=== PATIENT | female | born 1955 | race Caucasian/White ===

== ENCOUNTER → 2020-11-28 08:36 | Outpatient (CLI) | payer OTHER, SELFPAY ==
--- NOTE | ~2020-11-28 | XR_ITS ---
XR wrist RT w scaphoid DATE: 11/28/2020 08:58 INDICATION: Right wrist pain TECHNIQUE: 5 views COMPARISON: None FINDINGS: There is diffuse osteopenia. There is prominent osteoarthritic change at the triscaphe joint. No fracture or dislocation of the right wrist. No periosteal reaction or bone destruction, erosive ch hang or chondrocalcinosis. IMPRESSION: Osteopenia Triscaphe osteoarthritis Reviewed, dictated and finalized at location B.
--- NOTE | ~2020-11-28 | XR_ITS ---
XR hand RT 2V DATE: 11/28/2020 08:58 INDICATION: Right hand pain TECHNIQUE: AP and lateral views COMPARISON: None FINDINGS: Diffuse osteopenia. Prominent osteophytic change at the triscaphe joint. There is mild osteophytic change at the interphalangeal joints. No fracture or dislocation, periosteal reaction or bone destruction is detected. IMPRESSION: Osteopenia Polyarticular osteoarthritis Reviewed, dictated and finalized at location B.
== END ==
PROVIDERS: PCP Family Medicine; Visit Provider Physician Assistant
DX: M19.031 Primary osteoarthritis, right wrist (principal); M19.041 Primary osteoarthritis, right hand; M85.841 Other specified disorders of bone density and structure, right hand
CPT/HCPCS: 73110; 73120

== ENCOUNTER → 2020-12-19 08:11 | Outpatient (CLI) | payer OTHER, SELFPAY ==
--- NOTE | ~2020-12-19 | XR_ITS ---
EXAMINATION: XR knee LT 2V DATE: 12/19/2020 08:27 INDICATION: Left knee pain. TECHNIQUE: 2 views of left knee standing were obtained. COMPARISON: None. FINDINGS: Bone alignment is normal. No fracture. There is moderate osteoarthritis of medial compartme nt with osteophytes and mild joint space narrowing. There is mild osteoarthritis of lateral and dubon lofemoral compartments characterized by tiny marginal osteophytes. There is a small knee joint effusi on. IMPRESSION: 1. Moderate left knee osteoarthritis. 2. Moderate-sized left knee joint effusion. Reviewed, dictated and finalized at location A.
== END ==
PROVIDERS: PCP Family Medicine; Visit Provider Nurse Practitioner Family
DX: M17.12 Unilateral primary osteoarthritis, left knee (principal); M25.462 Effusion, left knee
CPT/HCPCS: 73560

== ENCOUNTER 2021-04-07 09:25 | Outpatient (CLI) | payer OTHER, SELFPAY ==
--- NOTE | 2021-04-07 11:00 | NEURO_ITS ---
Impression: # Complains of numbness of hands. # Evolving Carpal Tunnel Syndrome. # Normal needle/EMG exam. # No underlying neuropathy. Nerve Conduction Studies Anti Sensory Summary Table Stim Site NR Peak (ms) P-T Amp (?V) Site1 Site2 Delta-P (ms) Dist (cm) Eduard (m/s) Left Median Anti Sensory (2-3nd Digit) Wrist 2.6 61.2 Wrist 2-3nd Digit 2.6 14.0 54 Wrist 2.6 55.4 Wrist 2-3nd Digit 2.6 14.0 54 Right Median Anti Sensory (2-3nd Digit) Wrist 2.8 50.5 Wrist 2-3nd Digit 2.8 14.0 50 Wrist 2.8 69.7 Wrist 2-3nd Digit 2.8 14.0 50 Left Radial Anti Sensory (Base 1st Digit) Wrist 1.9 15.7 Wrist Base 1st Digit 1.9 0.0 Right Radial Anti Sensory (Base 1st Digit) Wrist 2.2 21.7 Wrist Base 1st Digit 2.2 0.0 Left Ulnar Anti Sensory (5th Digit) Wrist 2.3 41.3 Wrist 5th Digit 2.3 14.0 61 Right Ulnar Anti Sensory (5th Digit) Wrist 2.4 45.0 Wrist 5th Digit 2.4 14.0 58 Motor Summary Table Stim Site NR Onset (ms) O-P Amp (mV) Site1 Site2 Delta-0 (ms) Dist (cm) Eduard (m/s) Left Median Motor (Abd Poll Brev) Wrist 3.1 3.7 Elbow Wrist 4.9 28.0 57 Elbow 8.0 2.8 Right Median Motor (Abd Poll Brev) Wrist 3.2 5.5 Elbow Wrist 4.5 25.0 56 Elbow 7.7 3.3 Left Ulnar Motor (Abd Dig Minimi) Wrist 2.1 5.6 A Elbow Wrist 4.6 27.0 59 A Elbow 6.7 4.3 Right Ulnar Motor (Abd Dig Minimi) Wrist 2.1 5.7 A Elbow Wrist 4.5 26.0 58 A Elbow 6.6 4.7 F Wave Studies NR F-Lat (ms) L-R F-Lat (ms) Left Median (Mrkrs) (Abd Poll Brev) 26.41 1.01 Right Median (Mrkrs) (Abd Poll Brev) 27.42 1.01 Left Ulnar (Mrkrs) (Abd Dig Min) 26.35 0.04 Right Ulnar (Mrkrs) (Abd Dig Min) 26.31 0.04 EMG Side Muscle Nerve Root Ins Act Fibs Amp Dur Recrt Comment Right 1stDorInt Ulnar C8-T1 Nml Nml Nml Nml Nml Right Ext Indicis Radial (Post Int) C7-8 Nml Nml Nml Nml Nml Right Ext Digitorum Radial (Post Int) C7-8 Nml Nml Nml Nml Nml Right BrachioRad Radial C5-6 Nml Nml Nml Nml Nml Right PronatorTeres Median C6-7 Nml Nml Nml Nml Nml Right Abd Poll Brev Median C8-T1 Nml Nml Nml Nml Nml Left 1stDorInt Ulnar C8-T1 Nml Nml Nml Nml Nml Left Ext Indicis Radial (Post Int) C7-8 Nml Nml Nml Nml Nml Left Ext Digitorum Radial (Post Int) C7-8 Nml Nml Nml Nml Nml Left BrachioRad Radial C5-6 Nml Nml Nml Nml Nml Left PronatorTeres Median C6-7 Nml Nml Nml Nml Nml Left Abd Poll Brev Median C8-T1 Nml Nml Nml Nml Nml MTDD
== END 2021-04-07 09:26 | disposition home or self-care (01) ==
PROVIDERS: PCP Family Medicine; Visit Provider Nurse Practitioner Family
DX: R20.2 Paresthesia of skin (principal); G56.00 Carpal tunnel syndrome, unspecified upper limb; R20.0 Anesthesia of skin
CPT/HCPCS: 95886; 95911

== ENCOUNTER 2021-05-25 09:35 | Outpatient (CLI) | payer OTHER, SELFPAY ==
--- NOTE | ~2021-05-25 | MM_ITS ---
EXAMINATION: MM screening kostas BI w joselito HISTORY: Screening TECHNIQUE: Craniocaudal and mediolateral oblique 3-D tomosynthesis images were obtained and synthetic 2-D images were generated. CAD analysis was submitted and interpreted. COMPARISON: Comparison to multiple prior studies sequentially, with oldest reviewed study dated 03/31. BREAST PARENCHYMAL COMPOSITION: Breast composed of scattered areas of fibroglandular density FINDINGS: There is no evidence of suspicious mass, calcification, or architectural distortion to sugg est malignancy in either breast. There has been no suspicious interval change. IMPRESSION: 1. No mammographic evidence of malignancy. 2. Recommend routine screening mammography in one year. BI-RADS Category 1: Negative Reviewed, dictated and finalized at location A. 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
== END 2021-05-25 09:36 | disposition home or self-care (01) ==
PROVIDERS: PCP Family Medicine; Visit Provider Physician Assistant
DX: Z12.31 Encounter for screening mammogram for malignant neoplasm of breast (principal)
CPT/HCPCS: 77063; 77067

== ENCOUNTER → 2021-12-09 14:12 | Outpatient (CLI) | payer OTHER, SELFPAY ==
--- NOTE | ~2021-12-09 | XR_ITS ---
XR knee LT 3V 12/09/2021 14:23 Indication: Left knee pain Procedure: 4 views left knee Comparison: 12/20/2019 Findings: Mild-to severe tricompartment osteoarthritis of the left knee. No fracture, subluxation or dislocation. No significant joint effusion. No foreign body. Impression: 1: Mild-severe tricompartment osteoarthritis of the left knee, most advanced in the medial compartmen t. Reviewed, dictated and finalized at location B. Impression: 1: Mild-severe tricompartment osteoarthritis of the left knee, most advanced in the medial compartment.
== END ==
PROVIDERS: PCP Physician Assistant; Visit Provider Physician Assistant
DX: M25.562 Pain in left knee (principal); M17.12 Unilateral primary osteoarthritis, left knee
CPT/HCPCS: 73562

== ENCOUNTER → 2022-03-11 15:49 | Outpatient (CLI) | payer OTHER, SELFPAY ==
--- NOTE | ~2022-03-11 | MR_ITS ---
EXAMINATION: MR knee LT wo con DATE: 03/11/2022 16:27 INDICATION: Left knee pain. TECHNIQUE: Magnetic resonance imaging (MRI) of the left knee was performed without intravenous contra st. Sequences included axial PD-weighted FS FSE, coronal PD-weighted FSE and PD-weighted FS FSE, sagi ttal PD-weighted FSE, and sagittal T2-weighted FS FSE. COMPARISON: left knee radiographs 12/09/21 FINDINGS: Medial compartment: Medial meniscus is normal. There is full-thickness cartilage loss of tibial condyle involving the ant erior articular surface with mild subchondral edema-like signal intensity. There is full-thickness ca rtilage loss of femoral condyle involving the central articular surface with mild subchondral edema-l hannah marrow signal intensity. Osteophytes are noted. Lateral compartment: The lateral meniscus is normal. There is shallow partial-thickness cartilage loss of tibial condyle i nvolving the medial articular surface. The femoral cartilage is normal. Osteophytes are noted. Patellofemoral compartment: There is deep partial thickness cartilage fissuring of patellar medial facet. There is shallow partia l-thickness cartilage loss of trochlea. Osteophytes are noted. Ligaments and tendons: The anterior and posterior cruciate ligaments are normal. There are changes of prior sprain of medial collateral ligament characterized by increased signal intensity proximally. Lateral collateral ligam ent complex is normal. There is mild patellar tendinopathy. Fluid: There is a small knee joint effusion. There is trace fluid in a Faustin's cyst. There is mild superfici al infrapatellar bursitis. IMPRESSION: 1. Severe chondrosis of medial compartment, moderate chondrosis of patellofemoral compartment, and mi ld chondrosis of lateral compartment. 2. Small knee joint effusion. Reviewed, dictated and finalized at location A. G[facility] FACILITY IMPRESSION: 1. Severe chondrosis of medial compartment, moderate chondrosis of patellofemor al compartment, and mild chondrosis of lateral compartment. 2. Small knee joint effusion.
== END ==
PROVIDERS: PCP Physician Assistant; Visit Provider Family Medicine
DX: S89.92XA Unspecified injury of left lower leg, initial encounter (principal); X58.XXXA Exposure to other specified factors, initial encounter; M25.462 Effusion, left knee
CPT/HCPCS: 73721

== ENCOUNTER 2022-06-01 11:00 | Outpatient (RCR) | payer OTHER, SELFPAY ==
[2022-06-01 11:08] VITALS: BMI 48.2
[2022-06-01 13:02] VITALS: BMI 48.2
== END 2022-08-02 10:33 | disposition home or self-care (01) ==
LOC: ANHDMC 11:00
PROVIDERS: PCP Family Medicine; Visit Provider Nurse Practitioner Family
DX: E11.65 Type 2 diabetes mellitus with hyperglycemia (principal); Z71.89 Other specified counseling; Z71.3 Dietary counseling and surveillance
CPT/HCPCS: 97802; 99199; G0108; G0109

== ENCOUNTER 2022-10-30 11:05 | Outpatient (CLI) | payer OTHER, SELFPAY ==
--- NOTE | ~2022-10-30 | MM_ITS ---
EXAMINATION: MM screening kostas BI w joselito HISTORY: Screening mammogram TECHNIQUE: Craniocaudal and mediolateral oblique 3-D tomosynthesis images were obtained and synthetic 2-D images were generated. CAD analysis was submitted and interpreted. COMPARISON: No prior mammogram is available for comparison at this institution. BREAST PARENCHYMAL COMPOSITION: The breasts are almost entirely fatty. FINDINGS: There is no evidence of suspicious mass, calcification, or architectural distortion to sugg est malignancy in either breast. There has been no suspicious interval change. IMPRESSION: 1. No mammographic evidence of malignancy. 2. Recommend routine screening mammography in one year. BI-RADS Category 1: Negative Reviewed, dictated and finalized at location A.
== END 2022-10-30 11:06 | disposition home or self-care (01) ==
LOC: ANHIMG 11:07
PROVIDERS: PCP Family Medicine; Visit Provider Physician Assistant
DX: Z12.31 Encounter for screening mammogram for malignant neoplasm of breast (principal)
CPT/HCPCS: 77063; 77067

== ENCOUNTER 2023-02-11 08:17 | Outpatient (CLI) | payer OTHER, SELFPAY ==
--- NOTE | 2023-02-11 08:51 | ECG_ITS ---
Measurements Intervals Salyer Rate: 71 P: 39 SD: 156 QRS: 51 QRSD: 98 T: 26 QT: 388 QTc: 423 Interpretive Statements SINUS RHYTHM NO PREVIOUS ECG AVAILABLE FOR COMPARISON Electronically Signed On 02-11-2023 13:34:38 CDT by Lady Restrepo MD
[2023-02-11 09:31] LABS: Basophils Percent Auto 0.3 % (0.2-1.2); Eosinophils Absolute Auto 0.2 K/mm3 (0-0.3); Eosinophils Percent Auto 2.9 % (0-4.4); Hematocrit 41.2 % (37.0-47.0); Hemoglobin 12.6 g/dL (12.0-15.0); Immature Granulocyte Absolute 0.02 K/mm3 (0.00-0.031); Immature Granulocyte Percent A 0.3 % (0-0.5); Lymphocytes Absolute Auto 2.46 K/mm3 (0.9-3.2); Lymphocytes Percent Auto 33.8 % (18.3-44.2); Mean Corpuscular HGB Conc 30.6 g/dl (32-36); Mean Corpuscular Hemoglobin 26.9 pg (26-34); Mean Platelet Volume 10.8 fl (7.4-10.4); Monocytes Absolute Auto 0.5 K/mm3 (0.1-0.6); Monocytes Percent Auto 7.1 % (2.6-8.5); Neutrophils Absolute Auto 4.1 K/mm3 (1.3-6.7); Neutrophils Percent Auto 55.6 % (45.5-73.1); Platelet Count Result 334 k/mm3 (150-375); Red Blood Count 4.68 M/mm3 (4.2-5.4); Red Cell Distribution Width 14.1 % (11.5-14.5); White Blood Count 7.3 K/mm3 (4.5-10.0)
[2023-02-11 09:38] LABS: Anion Gap 8 mmol/L (8-16); Blood Urea Nitrogen 6 mg/dL (7-17); Carbon Dioxide 28 mmol/L (22-30); Chloride 101 mmol/L (98-107); Estimated Glomerular Filt Rate > 60; Glucose 131 mg/dL (65-110); Potassium 3.8 mmol/L (3.4-5.0); Sodium 137 mmol/L (137-145)
[2023-02-11 09:43] LABS: Appearance Urine Cloudy (Clear); Bacteria Urine 2+ /hpf; Bilirubin Urine Negative (Negative); Blood Urine Negative (Negative); Color Urine Yellow (Yellow); Glucose Urine UA Negative (Negative); Ketones Urine Negative (Negative); Leukocyte Esterase Ur 1+ LEU/UL (Negative); Nitrate Urine Negative (Negative); Non Pathogenic Casts 0-2; Protein Urine Negative (Negative); RBC Urine 0-2 /hpf (0-2); Specific Grav Ur 1.017 (1.001-1.035); Squamous Epithelial Cell Urine Many /hpf (Few)
[2023-02-11 09:59] LABS: Add Urine Microscopic? YES
[2023-02-11 14:02] LABS: Hemoglobin A1C 5.9 % (<5.7)
== END 2023-02-11 08:18 | disposition home or self-care (01) ==
LOC: ANHLAB 08:20
PROVIDERS: PCP Family Medicine; Visit Provider Orthopaedic Surgery
DX: E78.5 Hyperlipidemia, unspecified (principal); E11.69 Type 2 diabetes mellitus with other specified complication; M17.12 Unilateral primary osteoarthritis, left knee; I10 Essential (primary) hypertension; R53.83 Other fatigue
CPT/HCPCS: 36415; 80048; 81001; 83036; 85025; 87086; 87088; 93005

== ENCOUNTER 2023-03-16 09:43 | Outpatient (CLI) | payer OTHER, SELFPAY ==
[2023-03-16 11:20] LABS: Albumin Level 4.1 g/dL (3.5-5.1)
[2023-03-16 11:21] LABS: Appearance Urine Cloudy (Clear); Bacteria Urine 1+ /hpf; Bilirubin Urine Negative (Negative); Blood Urine Negative (Negative); Color Urine Yellow (Yellow); Glucose Urine UA Negative (Negative); Ketones Urine Negative (Negative); Leukocyte Esterase Ur 1+ LEU/UL (Negative); Nitrate Urine Negative (Negative); Non Pathogenic Casts 0-2; Protein Urine Negative (Negative); Prothrombin Time 13.6 Seconds (11.1-14.7); RBC Urine 0-2 /hpf (0-2); Specific Grav Ur 1.015 (1.001-1.035); Squamous Epithelial Cell Urine Moderate /hpf (Few); pH Urine 7.5 (5.0-9.0)
[2023-03-16 11:22] LABS: Partial Thromboplastin Time 31.5 SECONDS (22.3-36.8)
[2023-03-16 11:24] LABS: Add Urine Microscopic? YES
[2023-03-16 11:26] LABS: Urine Cotinine NEGATIVE
== END 2023-03-16 09:44 | disposition home or self-care (01) ==
LOC: ANHSURGERY 09:47
PROVIDERS: PCP Family Medicine; Visit Provider Orthopaedic Surgery
DX: M17.12 Unilateral primary osteoarthritis, left knee (principal); Z01.818 Encounter for other preprocedural examination
CPT/HCPCS: 80307; 81001; 82040; 85610; 85730; 87081; 87086

== ENCOUNTER 2023-03-30 01:03 | Day surgery (SDC) | payer OTHER, SELFPAY ==
--- NOTE | 2023-03-16 09:46 | PC.NURSE ---
PRE-OP INSTRUCTIONS, PLEASE READ CAREFULLY Report to the Outpatient Waiting Room, entrance under the green pavilion located off [facility], at time _0600_ on date _03/30/23_. Planned Procedure Time: _0730_. PACK A SMALL OVERNIGHT BAG AND LEAVE IN THE CAR ALONG WITH YOUR WALKER Time changes happen often and if your time is changed the preop area will call you the afternoon before. - You and your visitor will be asked to self-screen and do not enter if you have any COVID symptoms. - A mask is optional within the hospital at this time. -VISITING HOURS 8AM-8PM Patients may have clear liquids (water, carbonated beverages, clear teas, apple juice) until 3 hours prior to surgery (0430 AM) with a maximum of 20 ounces. - No food from midnight until time of surgery Take the following medications with a SIP of water the morning of surgery: _TYLENOL IF NEEDED_ DO NOT STOP ANY OF YOUR OTHER PRESCRIPTION MEDICATIONS PRIOR TO SURGERY ?EXCEPT THE FOLLOWING Medications to discontinue per ANESTHESIA - _VITAMINS/SUPPLEMENTS 3 DAYS PRIOR TO SURGERY, Date to take last dose 03/26/23_ Please no make-up, nail greek, hairspray, perfume, deodorant, or body powder the day of surgery. No jewelry (including any body piercings) or valuables the day of surgery, leave them at home. Please take a shower or bath the night before, or the morning of, surgery with an antibacterial soap. Wear comfortable, loose fitting clothing. - Jewelry must be removed prior to entering the operating room. Rings and piercings that are not removed may be cut off. - The hospital will not accept responsibility for valuables. - Please leave all valuables, including medications, at home the day of surgery. If you are going home after surgery, a licensed helper driver must drive you home. - NO public transportation without another adult if you receive anesthesia. - We recommend that an adult stay with you for 24 hours following discharge. - We also recommend that you do not drive, make important decision, drink alcoholic beverages, or take any drugs that were not prescribed by your health care provider for at least 24 hours after your discharge time. Follow any additional instructions given to you from your surgeon. If you or anyone in your household have experienced Covid symptoms in the past week, please notify your surgeon or the nurse liaison at the phone number below for possible testing. Instructions given to _PATIENT_and asked if any additional questions and then verbalized understanding. Patient advised to call surgeon office or pre surgery nurse liaison [phone] if any additional questions.
[2023-03-16 09:52] VITALS: BP 130/64; PULSE 82; RESP 18; TEMP 37; O2SAT 97; BMI 39.2
[2023-03-30] VITALS (18 sets, daily range): BP systolic 119–166; BP diastolic 50–76; PULSE 82–106; RESP 14–22; TEMP 36.2–36.9; O2SAT 91–100
--- NOTE | ~2023-03-30 | XR_ITS ---
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 Subcutaneous gas with fluid and air in the joint and overlying skin eugenia are consistent with recent surgery. No evidence of pe riprosthetic fracture. IMPRESSION: 1. Recent left total knee arthroplasty. Reviewed, dictated and finalized at location B. STOCK TRADER
[2023-03-30] MEDS: ACETAMINOPHEN 500 MG TABLET 1000 MG PO (06:30)
[2023-03-30] MEDS: LACTATED RINGERS 1,000 ML 30 ML IV CONT ×3 (06:40→10:42)
--- NOTE | 2023-03-30 06:50 | WPDANESEPPF ---
Anes - Initial Pre Proc Eval Procedure: Operation Date: 03/30/23 07:30 Proposed Procedures p Left Total Knee Arthroplasty - Syed Reynolds MD Date/Time: 03/30/23 06:50 Surgeon: Syed Reynolds MD Pre Op Diagnosis: Lt Knee DJD Patient Data Age: 67 Gender: F Height: 1.63 m Weight: 103.6 kg Last Vital Signs Temp 37.0 C 03/16/23 09:52 Pulse 82 03/16/23 09:52 Resp 18 03/16/23 09:52 BP 130/64 03/16/23 09:52 Pulse Ox 97 03/16/23 09:52 O2 Del Method Room Air 03/16/23 09:52 Allergies Allergy/AdvReac Type Severity Reaction Status Date / Time simvastatin Allergy Unknown MUSCLE/JOINT Verified 03/30/23 06:19 PAIN lisinopril AdvReac Mild Cough Verified 03/30/23 06:19 metformin AdvReac Mild Diarrhea Verified 03/30/23 06:19 Home Medications Medication Instructions Recorded Confirmed Type loratadine 10 mg tablet (Claritin) 10 mg PO DAILY PRN SEASONAL 07/02/19 03/30/23 History ALLERGIES blood-glucose meter (Contour Next #1 ea 02/06/21 03/21/23 Rx Glucose Meter kit) omeprazole 40 mg capsule,delayed See Rx Instructions .Route 03/12/22 03/30/23 Rx release .COMPLEX #90 caps blood sugar diagnostic (Contour #100 ea 04/27/22 03/21/23 Rx Next Test Strips) lancing device with lancets kit #100 ea 05/03/22 03/21/23 Rx (Microlet Next Lancing Device kit) losartan 50 mg tablet See Rx Instructions .Route 11/29/22 03/30/23 Rx .COMPLEX #90 tabs pravastatin 20 mg tablet See Rx Instructions .Route 11/30/22 03/30/23 Rx .COMPLEX #90 tabs semaglutide 0.25 mg or 0.5 mg (2 0.5 mg (0.736 mL) subcut WEEKLY #3 01/20/23 03/30/23 Rx mg/3 mL) subcutaneous pen injector mL acetaminophen 500 mg tablet 1,000 mg PO QID PRN Pain 03/16/23 03/30/23 History cholecalciferol (vitamin D3) 50 50 mcg PO HS 03/16/23 03/30/23 History mcg (2,000 unit) tablet qralxjch-cecmbxcn-dml C 250 2 tablet PO QAM 03/16/23 03/30/23 History mg-herbal no.124 11.66 mg chewable tablet (Airborne Gummy) sulfamethoxazole 800 1 tablet PO Q12H UTI #20 tabs 03/16/23 03/30/23 Rx mg-trimethoprim 160 mg tablet (Bactrim DS) chlorhexidine gluconate 4 % 1 applic topical DAILY #237 mL 03/22/23 03/30/23 Rx topical liquid (Hibiclens) Patient hx anesthesia problems: none Family hx anesthesia problems: none Results Review: All pre-operative results and documents have been reviewed as part of the pre-operative evaluation. [facility] Past Medical History Medical History (Updated 03/30/23 @ 06:51 by Toñito Tijerina MD) Diverticulitis HLD (hyperlipidemia) HTN (hypertension) Left knee DJD Left knee pain Neck pain Obesity Type 2 diabetes mellitus without complications Surgical History Surgical History History of cholecystectomy 2001 Hx of prior ablation treatment 2004 - Jasvir Moyer Previous back surgery Ruptured disc repair - 1993 Family History Family History Mother Hypertension Sibling Asthma Family history of diabetes mellitus in first degree relative Social History Social History Smoking status: Never smoker Second hand tobacco smoke exposure: No Additional smoking assessment comments: PT DENIES ALL FORMS OF TOBACCO USE Alcohol intake: never Substance use: never Substance use type: does not use Living arrangements: with family Occupation/Education: retired Gender identity (if verbalized by the patient): Female Sexual Orientation (if Verbalized by the Patient): Straight or Heterosexual Spiritual care concerns: No Anes - Eval Final PreProcedure Day of Procedure 03/30/23 06:50 Patient weight: morbidly obese Heart: regular rate and rhythm Lungs: clear to auscultation Airway: Mallampati scale class II Neurological: alert and oriented Last oral intake: >/= 8 hours ASA classification: III Emergent:
[2023-03-30 07:07] LABS: Glucose Point of Care 119 mg/dl (65-105)
--- NOTE | 2023-03-30 07:13 | WPDHPUPDATE1 ---
History and Physical Update Update Date/Time: 03/30/23 07:13 History and Physical has been reviewed, including an updated exam of the patient. There are NO changes in the patient's condition. Risks, benefits, and alternatives have been discussed and questions answered. Patient agrees to proceed with procedure.
[2023-03-30] MEDS: TRANEXAMIC ACID 1,000MG/ISO100 1,000 MG/100 ML BAG 200 MG IVPB (07:17)
--- NOTE | 2023-03-30 07:32 | WPDANESPNB ---
Anes - Peripheral Nerve Block Date/Time: 03/30/23 07:32 I have discussed with the patient/family/POA the placement of a peripheral nerve block for post-operative pain management, including associated risks, benefits, complications, and side effects. Alternative methods of post-operative analgesia were detailed. Questions were solicited and answers provided to the satisfaction of the patient/family/POA. Time-Out: A pre-procedural Time-Out was completed immediately before starting the procedure and confirmed: Patient Identification, Site, Procedure, Patient Position and the Availability of Requisite Equipment. Clinical Indications: Acute post-operative pain management requested by the operative surgeon. Nerve Block Insertion Note Anes-nerve block: adductor canal left Patient position: supine Skin prep: chlorhexidine Needle: 22 gauge, stimulating, insulated echogenic needle. Needle length: 80 mm Technique: ultrasound Injectate: bupivacaine 0.5% with epi 5 mcg/ml (30cc) and dexamethasone (mg) (8) Observations: tolerated well Complications: none Procedure start time:: 719 Procedure end time:: 725
[2023-03-30] MEDS: ceFAZolin 2 GM/D5W 50 ML 2 GM/50 ML BAG IVPB ×3 (07:33→23:54)
[2023-03-30] MEDS: GENTAMICIN BONE CEMENT REFOBACIN 1 EACH TOPICAL (08:21)
[2023-03-30] MEDS: TRANEXAMIC ACID 1,000 MG/10 ML AMPUL 1000 MG IV PUSH (09:06)
[2023-03-30 10:10] LABS: Glucose Point of Care 163 mg/dl (65-105)
--- NOTE | 2023-03-30 10:15 | W.PM.PROC2 ---
Procedure Note - Detailed Date of Procedure 03/30/23 Pre-op Diagnosis Lt Knee DJD Post-op Diagnosis Same Procedure Performed L TKA Surgeon Syed Reynolds MD Anesthesia General Description of Procedure THE LEFT KNEE WAS PREPPED AND DRAPED IN THE STERILE FASHION. THERE WAS A 10 DEGREE FLEXION CONTRACTURE. A MIDLINE SKIN INCISION WAS MADE. A MEDIAL PARAPATELLAR ARTHROTOMY WAS MADE. THE PATELLA WAS EVERTED. THERE WAS TRICOMPARTMENT DJD. THERE WAS MINIMAL PATELLA DJD. AN INTRAMEDULLARY MAC WAS PLACED IN THE FEMUR. A DISTAL FEMORAL CUT WAS MADE IN 5 DEGREES OF VALGUS REMOVING APPROXIMATELY 9 MM OF BONE FROM THE DISTAL FEMUR. THE FEMUR WAS SIZED TO 62.5. A 62.5 FEMORAL CUTTING BLOCK WAS PLACED IN 3 DEGREES OF EXTERNAL ROTATION AND IN ALIGNMENT WITH LISA'S LINE AND THE TRANSEPICONDYLAR AXIS. ANTERIOR POSTERIOR AND CHAMFER CUTS WERE MADE. THE CUTS WERE EXCELLENT. NEXT AN INTRAMEDULLARY CUTTING GUIDE WAS PLACED IN THE TIBIA. A TRANS TIBIAL CUT WAS MADE ALONG THE LONG AXIS OF THE TIBIA. APPROXIMATELY 10 MM OF BONE WAS REMOVED FROM THE HIGH SIDE OF THE TIBIA. THE TIBIA WAS THEN PLANED TO A SMOOTH SURFACE. POSTERIOR FEMORAL OSTEOPHYTES WERE REMOVED FROM THE FEMORAL CONDYLES. A 75 TIBIAL TRIAL WAS PLACED IN ALIGNMENT WITH THE 1/3 MEDIAL ASPECT OF THE TIBIAL TUBERCLE. THEN A 62.5 FEMORAL TRIAL COMPONENT WAS PLACED. BOTH HAD EXCELLENT FITS. EVENTUALLY A 16 MM POLYETHYLENE TRIAL COMPONENT WAS PLACED. THE KNEE WAS TAKEN THROUGH A RANGE OF MOTION. THE KNEE CAME OUT TO FULL EXTENSION. THERE WAS NO ABNORMAL TILT TO THE PATELLA. THERE WAS GOOD A/P AND VARUS/VALGUS STABILITY. THERE WAS NO EXCESSIVE ROLL BACK WITH FLEXION. THE TRIAL COMPONENTS WERE REMOVED. THEN A 62.5 FEMORAL COMPONENT AND 75 TIBIAL COMPONENT WITH A 16 POLYETHYLENE COMPONENT WERE CEMENTED INTO PLACE. ONCE THE CEMENT WAS HARD THE KNEE WAS TAKEN THROUGH A ROM AGAIN AND FOUND TO BE STABLE WITH NO PATELLA TILT NO EXCESSIVE ROLL BACK WITH FLEXION AND GOOD STABILITY WITH COMPLETE AND FULL EXTENSION. THE KNEE WAS IRRIGATED WITH STERILE BETADINE AND WATER FOR ABOUT 3 MINUTES. THE BLEEDERS WERE CAUTERIZED. THE ARTHROTOMY WAS REPAIRED WITH NUMBER 1 VICRYL. THE SUB CUTANEOUS LAYER WITH 2-0 VICRYL AND THE SKIN WITH GURJIT. THE WOUND WAS WASHED AND A STERILE PREVENA DRESSING WAS APPLIED. PATIENT WAS EXTUBATED. Estimated Blood Loss -100.0 Pathology None sent Complications No immediate complications Condition Stable Disposition PACU
[2023-03-30] MEDS: fentaNYL CITRATE INJ (*CRX) 100 MCG/2 ML VIAL 25 MCG IV PUSH ×4 (10:38→12:20)
--- NOTE | 2023-03-30 13:13 | ADMGEN ---
This patient, Tina Wilkinson, was admitted to Medical Room 247-. Patient/family oriented to hospital policies and general routines including ID bracelet, bed and alarms, visiting hours, pain management, procedures, bathroom and other care routines, personal items, smoking policy, room service/diet, and visiting hours. Information on how to activate the Rapid Response Team has been discussed. Patient/Family are encouraged to report perceived risks to care and to ask questions if they do not understand what they are told or what they should do.
[2023-03-30] MEDS: ASPIRIN 325 MG ENTERIC TABLET PO ×2 (13:43→20:38)
[2023-03-30] MEDS: SENNA/DOCUSATE SODIUM TABLET 2 TAB PO (13:43)
[2023-03-30] MEDS: KETOROLAC 15 MG/ML VIAL (*BKC) IV PUSH ×3 (13:46→23:54)
[2023-03-30] MEDS: LOSARTAN POTASSIUM 50 MG TABLET BY MOUTH (20:38)
[2023-03-30] MEDS: CHOLECALCIFEROL 1,000 UNITS TABLET 2000 UNITS PO (20:38)
[2023-03-30] MEDS: PRAVASTATIN SODIUM 20 MG TABLET BY MOUTH (20:38)
[2023-03-31 02:41] VITALS: BP 101/50; PULSE 76; RESP 18; TEMP 36.8; O2SAT 95
[2023-03-31] MEDS: oxyCODONE/ACETAMINOPHEN (*CRX) 5-325 MG TABLET 1 TABLET PO ×2 (03:17→08:25)
[2023-03-31 05:57] LABS: Basophils Percent Auto 0.1 % (0.2-1.2); Hematocrit 32.2 % (37.0-47.0); Hemoglobin 10.1 g/dL (12.0-15.0); Immature Granulocyte Absolute 0.12 K/mm3 (0.00-0.031); Immature Granulocyte Percent A 0.6 % (0-0.5); Lymphocytes Absolute Auto 1.79 K/mm3 (0.9-3.2); Lymphocytes Percent Auto 9.4 % (18.3-44.2); Mean Corpuscular HGB Conc 31.4 g/dl (32-36); Mean Corpuscular Hemoglobin 27.2 pg (26-34); Mean Corpuscular Volume 86.6 fl (80-100); Mean Platelet Volume 10.7 fl (7.4-10.4); Monocytes Absolute Auto 1.3 K/mm3 (0.1-0.6); Monocytes Percent Auto 6.6 % (2.6-8.5); Neutrophils Absolute Auto 15.9 K/mm3 (1.3-6.7); Neutrophils Percent Auto 83.3 % (45.5-73.1); Platelet Count Result 306 k/mm3 (150-375); Red Blood Count 3.72 M/mm3 (4.2-5.4); Red Cell Distribution Width 14.1 % (11.5-14.5); White Blood Count 19.1 K/mm3 (4.5-10.0)
[2023-03-31 06:01] LABS: Anion Gap 7 mmol/L (8-16); Blood Urea Nitrogen 12 mg/dL (7-17); Calcium 8.8 mg/dL (8.4-10.2); Carbon Dioxide 27 mmol/L (22-30); Chloride 101 mmol/L (98-107); Estimated CRCL calculation 104 ml/min; Estimated Glomerular Filt Rate > 60; Glucose 156 mg/dL (65-110); Potassium 4.2 mmol/L (3.4-5.0); Sodium 135 mmol/L (137-145)
[2023-03-31] MEDS: KETOROLAC 15 MG/ML VIAL (*BKC) IV PUSH ×2 (06:01→11:49)
[2023-03-31 06:38] VITALS: BP 103/54; PULSE 89; RESP 18; TEMP 36.6; O2SAT 98
[2023-03-31] MEDS: ASPIRIN 325 MG ENTERIC TABLET PO (08:24)
[2023-03-31] MEDS: SENNA/DOCUSATE SODIUM TABLET 2 TAB PO (08:24)
[2023-03-31] MEDS: polyethylene glycoL 3350 17 GM POWD.PACK PO (08:25)
[2023-03-31 08:30] VITALS: O2SAT 96
[2023-03-31] MEDS: ceFAZolin 2 GM/D5W 50 ML 2 GM/50 ML BAG IVPB (09:11)
[2023-03-31 09:34] VITALS: BP 117/60; PULSE 86; RESP 16; TEMP 36.2; O2SAT 99
--- NOTE | 2023-03-31 09:42 | PM.PNORT ---
Progress Note: A&P Assessment and Plan (1) S/P total knee arthroplasty: Qualifiers: Laterality: left Qualified Code(s): Z96.652 - Presence of left artificial knee joint Code(s): Z96.659 - Presence of unspecified artificial knee joint Status: Acute Assessment and Plan: POD #1 : Left TKA Continue PT/OT. WBAT. Walker. HIGH FALL RISK. Continue pain control. Ice Knee. Protect skin. DVT prophylaxis with Aspirin. SCDs. Incentive Spirometry Use reviewed. Monitor Dressing. Prevena dressing in place. Okay to go home with this. Nursing to provide a mepilex silver dressing for use at discharge. Bowel Regimen. Dispo: Home with Home Health pending progress with PT/OT Plan Reviewed postoperative course with attending MD, Dr. Reynolds. Agrees with current plan as indicated above. Subjective Subjective Date/Time Seen: 03/31/ 09:42 Post Op day: 1 Interval history: POD #1: Left TKA Patient doing very well. Sitting up in chair. Pain well controlled. Worked well with PT/OT. Hopeful for discharge home today. Review of Systems Review of Systems: All systems reviewed & are unremarkable except as noted in HPI and below Constitutional: Constitutional: Denies fever(s) and Denies headache(s) ENT: Denies headache(s) Cardiovascular: Cardiovascular: Denies chest pain, Denies diaphoresis, Denies palpitations and Denies dyspnea Respiratory: Respiratory: Denies dyspnea Gastrointestinal: Gastrointestinal: Denies abdominal pain, Denies constipation, Denies nausea and Denies vomiting Genitourinary: Genitourinary: Reports nocturia and Denies dysuria Musculoskeletal: Musculoskeletal: Reports arthralgias (Left Knee ), Reports joint swelling (Left Knee ) and Reports limited range of motion (ROM limited due to recent surgical intervention LEFT Knee ) Neurologic: Denies headache(s) Endocrine: Endocrine: Denies palpitations Exam Const: General: comfortable and no acute distress Resp: Effort & Inspection: normal respiratory effort Cardio: Rate: regular rate Rhythm: regular rhythm GI: GI Palp: Yes Soft to palpation, No Tenderness to palpation present (GI) and No Guarding due to palpation present (GI) Skin: General skin exam: wounds noted (see extremity assessment ) Wounds: wounds noted (see extremity assessment ) Neuro: Cognition (Neuro): normal cognition Other: NV intact aside from block. Moves toes. Sensation intact to light touch. +ankle dorsiflexion/plantarflexion. Extrem: Left lower extremity: normal to inspection, normal capillary refill, knee Details: tenderness (diffuse ) Location: of the patella, swelling (moderate consistent to recent surgery ), abnormal ROM (limited due to recent surgery ) Details: pain with active ROM and pain with passive ROM and ecchymosis (as expected with recent surgery. NO hematoma. ), lower leg (Negative Fabiano's Sign ), ankle (+ankle dorsiflexion/plantarflexion ) Details: normal to inspection, no edema and normal ROM; no tenderness and no swelling and foot Details: normal capillary refill, toes with normal ROM, vascular exam Details: dorsalis pedis pulse present and motor-sensory exam light-touch normal; no tenderness Other: Incision left TKA dressing c/d/i. No hematoma. No signs of infection. No wound dehiscence. Psych: Mental Status: mental status grossly normal Objective Data Vital Signs Vital Signs: Vital Signs - 24 hr 03/30/23 10:03 03/30/23 10:18 03/30/23 10:33 Temperature 36.4 C Pulse Rate 104 H 91 91 Respiratory Rate 18 14 14 Blood Pressure 166/71 H 151/71 H 142/68 H Pulse Oximetry 96 100 93 Oxygen Delivery Simple Face Mask Simple Face Mask Room Air Oxygen Flow Rate 10 10 03/30/23 10:48 03/30/23 11:03 03/30/23 11:18 Temperature Pulse Rate 90 87 92 Respiratory Rate 16 18 22 H Blood Pressure 137/68 137/67 132/66 Pulse Oximetry 91 93 94 Oxygen Delivery Room Air Room Air Room Air Oxygen Flow Rate 03/30/23 11:33 12/0
--- NOTE | 2023-03-31 13:12 | PC.NURSE ---
On 03/31/23, the student, [Ebony Simon], provided care and completed [facility] documentation on this patient. I have reviewed the student's documentation and agree with the findings.
[2023-03-31 13:41] VITALS: BP 115/50; PULSE 75; RESP 16; TEMP 36; O2SAT 98
--- NOTE | 2023-03-31 13:54 | WPDANESPN ---
Anes - Prog Note Post-Op Date/Time: 03/31/23 13:54 Vital Signs: Last Vital Signs Temp 36.0 C L 03/31/23 13:41 Pulse 75 03/31/23 13:41 Resp 16 03/31/23 13:41 BP 115/50 L 03/31/23 13:41 Pulse Ox 98 03/31/23 13:41 O2 Del Method Room Air 03/31/23 08:30 O2 Flow Rate 10 03/30/23 10:18 Pain Score (VAS): 0 I/O: Intake & Output 03/30/23 03/31/23 03/31/23 23:59 07:59 15:59 Intake Total 290 50 530 Output Total 450 Balance -160 50 530 Laboratory Tests 03/31/23 05:29 03/31/23 05:29 03/31/23 05:29 WBC 19.1 H RBC 3.72 L Hgb 10.1 L Hct 32.2 L MCV 86.6 MCH 27.2 MCHC 31.4 L RDW 14.1 Plt Count 306 MPV 10.7 H Immature Gran % (Auto) 0.6 H Neut % (Auto) 83.3 H Lymph % (Auto) 9.4 L [place] % (Auto) 6.6 Eos % (Auto) 0.0 Baso % (Auto) 0.1 L Lymph # (Auto) 1.79 [place] # (Auto) 1.3 H Eos # (Auto) 0.0 Baso # (Auto) 0.0 Abs Immat Gran (auto) 0.12 H Absolute Neuts (auto) 15.9 H Absolute Nucleated RBC 0.0 Nucleated RBC % 0.0 Sodium 135 L Potassium 4.2 Chloride 101 Carbon Dioxide 27 Anion Gap 7 L BUN 12 D Creatinine 0.50 L Estim Creat Clear Calc 104 Estimated GFR > 60 Glucose 156 H Calcium 8.8 Patient Feedback: Patient satisfied with anesthetic care.
--- NOTE | 2023-03-31 14:57 | PM.DS ---
DS: Admitting Diagnosis Discharge Date 03/31/2023 Admitting Diagnosis Left TKA DS: Discharge Diagnosis Discharge Diagnosis (1) S/P total knee arthroplasty: Qualifiers: Laterality: left Qualified Code(s): Z96.652 - Presence of left artificial knee joint Code(s): Z96.659 - Presence of unspecified artificial knee joint Status: Acute Assessment and Plan: POD #1 : Left TKA Continue PT/OT. WBAT. Walker. HIGH FALL RISK. Continue pain control. Ice Knee. Protect skin. DVT prophylaxis with Aspirin. SCDs. Incentive Spirometry Use reviewed. Monitor Dressing. Prevena dressing in place. Okay to go home with this. Nursing to provide a mepilex silver dressing for use at discharge. Bowel Regimen. Dispo: Home with Home Health pending progress with PT/OT Plan Reviewed postoperative course with attending MD, Dr. Reynolds. Agrees with current plan as indicated above. DS: Summary Hospital Course Reason for hospitalization: Left TKA Hospital Course: 67 year old female admitted s/p Left JORDI for postoperative medical management, pain control and mobilization with PT/OT. Patient progressed well with PT/OT. Pain and vitals remained stable throughout. The patient has been cleared to be discharged home with home health at this time. All discharge care instructions reviewed at depth. New medications reviewed. Follow up planned for 3 weeks in the outpatient orthopedic clinic with Dr. Reynolds. Dr. Reynolds in agreement with d/c at this time. Status at Discharge Functional status at discharge: uses cane/walker Overall status at discharge: patient is progressing back to baseline Time Spent with Patient Time attestation: Total time spent providing and/or coordinating discharge services: Exam Const: General: comfortable and no acute distress Resp: Effort & Inspection: normal respiratory effort Cardio: Rate: regular rate Rhythm: regular rhythm Skin: General skin exam: wounds noted (see extremity assessment ) Wounds: wounds noted (see extremity assessment ) Neuro: Cognition (Neuro): normal cognition Other: NV intact aside from block. Moves toes. Sensation intact to light touch. +ankle dorsiflexion/plantarflexion. Extrem: Left lower extremity: normal to inspection, normal capillary refill, knee Details: tenderness (diffuse ) Location: of the patella, swelling (moderate consistent to recent surgery ), abnormal ROM (limited due to recent surgery ) Details: pain with active ROM and pain with passive ROM and ecchymosis (as expected with recent surgery. NO hematoma. ), lower leg (Negative Fabiano's Sign ), ankle (+ankle dorsiflexion/plantarflexion ) Details: normal to inspection, no edema and normal ROM; no tenderness and no swelling and foot Details: normal capillary refill, toes with normal ROM, vascular exam Details: dorsalis pedis pulse present and motor-sensory exam light-touch normal; no tenderness Other: Incision left TKA dressing c/d/i. No hematoma. No signs of infection. No wound dehiscence. Psych: Mental Status: mental status grossly normal DS: Data Data Completed and Pending Labs on day of discharge: Labs from last 24 hours 03/31/23 05:29 WBC 19.1 H RBC 3.72 L Hgb 10.1 L Hct 32.2 L MCV 86.6 MCH 27.2 MCHC 31.4 L RDW 14.1 Plt Count 306 MPV 10.7 H Immature Gran % (Auto) 0.6 H Neut % (Auto) 83.3 H Lymph % (Auto) 9.4 L [place] % (Auto) 6.6 Eos % (Auto) 0.0 Baso % (Auto) 0.1 L Lymph # (Auto) 1.79 [place] # (Auto) 1.3 H Eos # (Auto) 0.0 Baso # (Auto) 0.0 Abs Immat Gran (auto) 0.12 H Absolute Neuts (auto) 15.9 H Absolute Nucleated RBC 0.0 Nucleated RBC % 0.0 Sodium 135 L Potassium 4.2 Chloride 101 Carbon Dioxide 27 Anion Gap 7 L BUN 12 D Creatinine 0.50 L Estim Creat Clear Calc 104 Estimated GFR > 60 Glucose 156 H Calcium 8.8 Discharge Plan Discharge Patient Disposition: Home Health Service Discharge Instructions: Post Op Total Kn
[2023-03-31] MEDS: ACETAMINOPHEN 500 MG TABLET 1000 MG PO (15:22)
== END 2023-03-31 16:11 | disposition home health service (06) ==
LOC: ANHSURGERY 05:56 → ANH2MED 13:00
PROVIDERS: PCP Family Medicine; Visit Provider Orthopaedic Surgery
PROC: (CPT 27447; principal; 2023-03-30 07:30)
DX: M17.12 Unilateral primary osteoarthritis, left knee (principal); G89.18 Other acute postprocedural pain; E11.9 Type 2 diabetes mellitus without complications; I10 Essential (primary) hypertension; E78.5 Hyperlipidemia, unspecified; E66.01 Morbid (severe) obesity due to excess calories; Z68.38 Body mass index [BMI] 38.0-38.9, adult; Z79.85 Long-term (current) use of injectable non-insulin antidiabetic drugs
CPT/HCPCS: 27447; 64447; 36415; 73560; 80048; 80307; 81001; 82040; 82948; 85025; 85610; 85730; 86850; 86900; 86901; 87081; 87086; 97110; 97116; 97161; 97165; 97530; 97535; A9270; C1713; C1776; J0171; J0690; J1100; J1170; J1885; J2250; J2270; J2405; J2704; J2795; J3010; J7120

== ENCOUNTER 2023-05-17 14:26 | Outpatient (CLI) | payer OTHER, SELFPAY ==
--- NOTE | ~2023-05-17 | DEXA_ITS ---
Bone Density Report Name: ALBERT FORRESTER Age: 67 Sex: Female Ethnicity: White Date of : 1955 Indication: postmenopausal; screening for osteoporosis; height loss; Referring Provider: SARAH GARZA Study: Bone densitometry was performed. Exam Date: May 17, 2023 Accession number: [id number] Bone Density: Region BMD T-score Z-score Classification AP Spine(L1-L4) 1.000 -0.4 1.6 Normal Femoral Neck (Left) 0.810 -0.3 1.4 Normal Total Hip (Left) 0.957 0.1 1.6 Normal Femoral Neck (Right) 0.811 -0.3 1.4 Normal Total Hip (Right) 0.950 0.1 1.5 Normal Total Hip Mean 0.954 0.1 1.6 Normal World Health Organization criteria for BMD impression classify patients as: Normal (T-score at or above -1.0), Osteopenia (T-score between -1.0 and -2.5), or Osteoporosis (T-score at or below -2.5). 10-year Fracture Risk: FRAX not reported because: All T-scores for Spine Total, Hip Total, Femoral Neck at or above -1.0 Clinical Information Provided by Patient: Has used the following medications: Vitamin D Patient maximum height was 64.5 Menopause Age: 49 Onset of menses at age 13 Number of children 2 Impression: The patient has normal bone mass. Discussion: BONE DENSITY IS ABOVE THE MINIMUM DESIRABLE LEVEL AT ALL SKELETAL SITES TESTED. This patient?s bone mineral density is above the minimum desirable level (T-score -1.0 or better) at all sites measured. The patient should follow a healthful lifestyle (good nutrition with adequate calcium and vitamin D, and appropriate weight-bearing exercise). Follow-Up: Consider repeating this study in 5 years or sooner if there is some new clinical indication. Reported by: [facility] on 05/17/2023 2:49:00 PM. Reviewed, dictated and finalized at location A. [facility] [place]
== END 2023-05-17 14:27 | disposition home or self-care (01) ==
PROVIDERS: PCP Family Medicine; Visit Provider Physician Assistant
DX: Z78.0 Asymptomatic menopausal state (principal)
CPT/HCPCS: 77080

== ENCOUNTER 2024-07-13 09:26 | Outpatient (CLI) | payer OTHER, SELFPAY ==
--- NOTE | ~2024-07-13 | MM_ITS ---
EXAMINATION: MM screening kostas BI w joselito HISTORY: Screening TECHNIQUE: Craniocaudal and mediolateral oblique 3-D tomosynthesis images were obtained and synthetic 2-D images were generated. CAD analysis was submitted and interpreted. COMPARISON: Comparison to multiple prior studies sequentially, with oldest reviewed study dated 10/2014. BREAST PARENCHYMAL COMPOSITION: Not dense: There are scattered areas of fibroglandular density. FINDINGS: There is a new mass in the lower outer quadrant of the right breast, middle third. There is a cluster of calcifications in the lower outer quadrant of the left breast, middle third which have increased in number. IMPRESSION: 1. New right breast mass. Increase number of clustered left breast calcifications. 2. Additional mammographic views and possible breast ultrasound are recommended. BI-RADS Category 0: Incomplete: Needs additional imaging evaluation. Reviewed, dictated and finalized at location B. IMPRESSION: 1. New right breast mass. Increase number of clustered left breast calcificatio ns. 2. Additional mammographic views and possible breast ultrasound are recommended . BI-RADS Category 0: Incomplete: Needs additional imaging evaluation.
--- OUTSIDE RECORDS SUMMARY | 2024-07-13 10:31 | XMS_ITS | Clinical Summary ---
Author Organization [facility] Address [address] [facility] [place] [address] Phone Care Team Providers Care Rn Spine Name Role Phone Chip Gordon MD Primary Care Provider [phone] Allergies No known active allergies Medications pravastatin (PRAVACHOL) 20 mg tablet TK 1 T PO D 5 7 Active pioglitazone (ACTOS) 45 mg tablet TK ONE T PO QD 3 7 Active metFORMIN (GLUCOPHAGE XR) 500 mg Extended Release 24 hour tablet TK 2 TS PO QD WITH EVENING MEAL 5 7 Active losartan (COZAAR) 50 mg tablet TK 1 T PO QD 1 7 Active azithromycin (ZITHROMAX TRI-STELLA) 500 mg tabletIndication s:Acute bronchitis, unspecified organism Take 1 Tablet (500 mg) by mouth daily. 3 Tablet 7 Active albuterol HFA 90 mcg inhalerIndicatio ns:Acute bronchitis, unspecified organism Take 2 Puffs by inhalation every 4 hours as needed for Shortness of Breath or Wheezing. 8.5 Gram 7 Active Active Problems No known active problems Social History Tobacco Use Types Packs/Day Years Used Date Smoking Tobacco: Never Alcohol Use Standard Drinks/Week Comments No 0 (1 standard drink = 0.6 oz pur e alcohol) Comments No Sex and Gender Information Value Date Recorded Sex Assigned at Not on file Legal Sex Female 1:49 PM INSURANCE LAW SPECIALIST Gender Identity Not on file Sexual Orientation Not on file Last Filed Vital Signs Vital Sign Reading Time Taken Comments Blood Pressure 116/69 06/03/2016 2:09 PM INSURANCE LAW SPECIALIST Pulse 85 06/03/2016 2:09 PM INSURANCE LAW SPECIALIST Temperature 36.7 C (98 F) 06/03/2016 2:09 PM INSURANCE LAW SPECIALIST Respiratory Rate 16 06/03/2016 2:09 PM INSURANCE LAW SPECIALIST Oxygen Saturation 97% 06/03/2016 2:09 PM INSURANCE LAW SPECIALIST Inhaled Oxygen Concentration - - Weight 113.4 kg (250 lb) 06/03/2016 2:09 PM INSURANCE LAW SPECIALIST Height 162.6 cm (5' 4 ) 06/03/2016 2:09 PM INSURANCE LAW SPECIALIST Body Mass Index 42.91 06/03/2016 2:09 PM INSURANCE LAW SPECIALIST Plan of Treatment Health Maintenance Due Date Last Done Comments DTAP/TDAP/TD VACCINES (1 - Tdap) 1973 BREAST CANCER SCREENING 1994 COLORECTAL SCREENING 09/25/1999 Colorectal Cancer Screening 09/25/1999 FIT-DNA Q 3 years 09/25/1999 FIT/FOBT Q 1 year 09/25/1999 Flex Sig/CT Colonography Q 5 years 09/25/1999 PNEUMOCOCCAL VACCINE 50+ YEARS (1 of 1 - PCV) 09/25/19 05 ZOSTER VACCINE (1 of 2) 2004 OSTEOPOROSIS SCREENING 09/25/2019 INFLUENZA VACCINE (#1) 2023 RSV VACCINE (60+ or ) (1 - 1-dose 75+ series) [address] [place] [address] BLUE PREFERRED Care Teams Rn Spine Relationship Specialty Start Date End Date Chip Gordon MD [address] [facility] [address] [place] [address] PCP - General Family Practice 06/03/16
--- OUTSIDE RECORDS SUMMARY | 2024-07-13 10:31 | XMS_ITS | Continuity of Care Document ---
Author Organization [facility] Address [address] [place] [address] [address] [place] [address] Phone Care Team Providers Care Metrology Specialist Name Role Phone Lexis Lieberman Unavailable Unavailable Advance Directives Directive Yes / No Effective Date File Name No Information Encounters Encounter Description Practice Location Reason(s) For Visit Diagnoses Date Provider Providers Copied on Encounter [facility], [address], [place], [place], [address], [place] tel:[phone] [facility] [place] No Information [phone] Luisana Pires. [address] [facility] , [address], [place], [address], [place]. tel:[phone] Family History Family Member Type Diagnosis Age At Onset No Information Payers Payer name Insurance type Covered democrat ID Authoriza tion(s) [facility] Commercial CI [id number] Social History Type Description Quantity Date Captured Comments Sex Female Smoking Status No Information Chief Complaint And Reason For Visit No Information Reason For Referral Reason For Referral No Information History Of Present Illness Encounter Date Complaint History Of Prese nt Illness No Information Functional Status Date Functional Assessmen t No Information Instructions Date Instruction Additional Infor mation No Information Assessments Type Assessment Date No Information Patient Care Teams Name Effective Dates (start - stop) Status Members No Information
== END 2024-07-13 09:27 | disposition home or self-care (01) ==
LOC: ANHIMG 09:27
PROVIDERS: PCP Family Medicine; Visit Provider Family Medicine
DX: Z12.31 Encounter for screening mammogram for malignant neoplasm of breast (principal); N63.13 Unspecified lump in the right breast, lower outer quadrant; R92.8 Other abnormal and inconclusive findings on diagnostic imaging of breast
CPT/HCPCS: 77063; 77067

== ENCOUNTER 2024-07-30 12:35 | Outpatient (CLI) | payer OTHER, SELFPAY ==
--- NOTE | ~2024-07-30 | MMUS_ITS ---
EXAMINATION: MM diagnostic kostas BI w joselito, US breast RT limited HISTORY: Follow-up right breast asymmetry and left breast calcifications TECHNIQUE: Additional 3-D tomosynthesis images of the right breast were performed and synthetic 2-D i mages were generated. CAD analysis was submitted and interpreted. High resolution Limited right breas t ultrasound was performed. COMPARISON: Comparison to multiple prior studies sequentially, with oldest reviewed study dated 10/2014. BREAST PARENCHYMAL COMPOSITION: Not dense: There are scattered areas of fibroglandular density. FINDINGS: MAMMOGRAPHIC FINDINGS: There is a new indistinct mass in the 9:00 position of the right breast with some spiculated margins. Left breast calcifications have a monomorphic linear appearance, likely benign. ULTRASOUND: Limited right breast ultrasound: At 9:00, 5 cm from the nipple there is an irregular shaped hypoechoi c mass with central echogenicity measuring 7 mm greatest dimension. No other masses identified. IMPRESSION: 1. Irregular shaped hypoechoic 7 mm right breast mass at 9:00, 5 cm from the nipple, corresponding to the mammographic abnormality. Ultrasound-guided right breast biopsy recommended. BI-RADS Category 4. 2. Probable benign left breast calcifications. Six-month follow-up diagnostic left mammogram recommen ded. BI-RADS Category 3. Reviewed, dictated and finalized at location A. IMPRESSION: 1. Irregular shaped hypoechoic 7 mm right breast mass at 9:00, 5 cm from the ni pple, corresponding to the mammographic abnormality. Ultrasound-guided right br east biopsy recommended. BI-RADS Category 4. 2. Probable benign left breast calcifications. Six-month follow-up diagnostic l eft mammogram recommended. BI-RADS Category 3.
--- OUTSIDE RECORDS SUMMARY | 2024-07-30 14:11 | XMS_ITS | Clinical Summary ---
Author Organization [facility] Address [address] [facility] [place] [address] Phone Care Team Providers Care Agriculture Science Teacher Name Role Phone Chip Gordon MD Primary Care Provider [phone] Allergies No known active allergies Medications pravastatin [...] on file Legal Sex Female 1:49 PM REVENUE ENFORCEMENT AGENT Gender Identity Not on file Sexual Orientation Not on file Last Filed Vital Signs Vital Sign Reading Time Taken Comments Blood Pressure 116/69 06/03/2016 2:09 PM REVENUE ENFORCEMENT AGENT Pulse 85 06/03/2016 2:09 PM REVENUE ENFORCEMENT AGENT Temperature 36.7 C (98 F) 06/03/2016 2:09 PM REVENUE ENFORCEMENT AGENT Respiratory Rate 16 06/03/2016 2:09 PM REVENUE ENFORCEMENT AGENT Oxygen Saturation 97% 06/03/2016 2:09 PM REVENUE ENFORCEMENT AGENT Inhaled Oxygen Concentration - - Weight 113.4 kg (250 lb) 06/03/2016 2:09 PM REVENUE ENFORCEMENT AGENT Height 162.6 cm (5' 4 ) 06/03/2016 2:09 PM REVENUE ENFORCEMENT AGENT Body Mass Index 42.91 06/03/2016 2:09 PM REVENUE ENFORCEMENT AGENT Plan of Treatment Health Maintenance Due Date [...] (1 - 1-dose 75+ series) [address] [place] [address] BLUE PREFERRED Care Teams Agriculture Science Teacher Relationship Specialty Start Date End Date Chip Gordon MD [address] [facility] [address] [place] [address] PCP - General Family Practice 06/03/16
--- OUTSIDE RECORDS SUMMARY | 2024-07-30 14:11 | XMS_ITS | Continuity of Care Document ---
Author Organization [facility] Address [address] [place] [address] [address] [place] [address] Phone Care Team Providers Care Polisher Aluminum Name Role Phone Lexis Lieberman Unavailable Unavailable Advance Directives Directive Yes / No Effective Date File Name No Information Encounters Encounter Description Practice Location Reason(s) For Visit Diagnoses Date Provider Providers Copied on Encounter [facility], [address], [place], [place], [address], [place] tel:[phone] [facility] [place] No Information [phone] Luisana Pires. [address] [place] , [address], [place], [address], [place]. tel:[phone] Family History Family Member Type Diagnosis Age At Onset No Information Payers Payer name Insurance type Covered republican ID Authoriza tion(s) [facility] Commercial CI [id number] Social History Type Description Quantity Date Captured [...]
== END 2024-07-30 12:36 | disposition home or self-care (01) ==
LOC: ANHIMG 12:35
PROVIDERS: PCP Family Medicine; Visit Provider Family Medicine
DX: R92.8 Other abnormal and inconclusive findings on diagnostic imaging of breast (principal); R92.1 Mammographic calcification found on diagnostic imaging of breast
CPT/HCPCS: 76642; 77062; 77066; G0279

== ENCOUNTER 2024-08-22 06:57 | Outpatient (CLI) | payer OTHER, SELFPAY ==
--- NOTE | ~2024-08-22 | MMUS_ITS ---
EXAMINATION: MM post biopsy diagnostic RT, US breast biopsy RT w image DATE: 08/22/2024 10:22 (accession [id number]), 08/22/2024 10:38 (accession [id number]) INDICATION: 68-year-old woman presents for ultrasound-guided right breast biopsy BREAST PARENCHYMAL COMPOSITION:Scattered fibroglandular pattern TECHNIQUE: The procedure including the risks, benefits, and alternatives was discussed with the patie nt. Risks discussed included bleeding, nontargeted biopsy and infection. The patient understood the risks and agreed to proceed. The skin overlying the upper outer quadrant of the right breast was prepped and draped in usual steri le fashion. Anesthetic was administered with 1% lidocaine without epinephrine subcutaneously. Limited ultrasound examination of the right breast was then again performed. At the 9:00 position of the right breast approximately 5 cm from the nipple is a mostly well-circumsc ribed focus of decreased echogenicity measuring 5.2 x 5.6 x 4.7 mm, suitable for biopsy. A 13G introducer was placed using ultrasound guidance into the abnormality at the 9:00 position of th e right breast, and the inner needle removed. A 14-gauge biopsy device was then used to obtain multiple biopsy specimens under continuous sonograph ic guidance. The biopsy device was then removed, and through the introducer a butterfly marker was pl aced. The entry site was cleaned and dressed with Steri-Strips. There were no immediate complications. Post biopsy mammography was then performed in both the CC and MLO positions demonstrating a butterfly microclip in the upper outer quadrant of the right breast without a significant perilesional hematom a. IMPRESSION: 1. Technically successful ultrasound-guided core biopsy of the upper outer quadrant of the right renan st with post procedure mammogram for marker placement. Pathology pending Reviewed, dictated and finalized at location A. IMPRESSION: 1. Technically successful ultrasound-guided core biopsy of the upper outer quad rant of the right breast with post procedure mammogram for marker placement. Pathology pending
--- OUTSIDE RECORDS SUMMARY | 2024-08-22 07:00 | XMS_ITS | Continuity of Care Document ---
Author Organization [facility] Address [address] [place] [address] [address] [place] [address] Phone Care Team Providers Care Senior Ui Web Developer Name Role Phone Lexis Lieberman Unavailable Unavailable Advance Directives Directive Yes / No Effective Date File Name No Information Encounters Encounter Description Practice Location Reason(s) For Visit Diagnoses Date Provider Providers Copied [facility] [address], [place], [place], [address], [place] tel:[phone] [facility] [place] No Information [phone] Luisana Pires. [address] [facility] [place] , [address], [place], [address], [place]. tel:[phone] Family History Family Member Type Diagnosis Age At Onset No Information Payers Payer name Insurance type Covered constitution party ID Authoriza tion(s) [facility] Commercial CI [id number] Social History Type Description Quantity Date Captured [...]
--- OUTSIDE RECORDS SUMMARY | 2024-08-22 07:00 | XMS_ITS | Clinical Summary ---
Author Organization [facility] Address [address] [facility] [place] [address] Phone Care Team Providers Care Briefcase Sewer Name Role Phone Chip Gordon MD Primary Care Provider [phone] Allergies No known active allergies Medications pravastatin [...] on file Legal Sex Female 1:49 PM ENTERPRISE PROJECT MANAGER Gender Identity Not on file Sexual Orientation Not on file Last Filed Vital Signs Vital Sign Reading Time Taken Comments Blood Pressure 116/69 06/03/2016 2:09 PM ENTERPRISE PROJECT MANAGER Pulse 85 06/03/2016 2:09 PM ENTERPRISE PROJECT MANAGER Temperature 36.7 C (98 F) 06/03/2016 2:09 PM ENTERPRISE PROJECT MANAGER Respiratory Rate 16 06/03/2016 2:09 PM ENTERPRISE PROJECT MANAGER Oxygen Saturation 97% 06/03/2016 2:09 PM ENTERPRISE PROJECT MANAGER Inhaled Oxygen Concentration - - Weight 113.4 kg (250 lb) 06/03/2016 2:09 PM ENTERPRISE PROJECT MANAGER Height 162.6 cm (5' 4 ) 06/03/2016 2:09 PM ENTERPRISE PROJECT MANAGER Body Mass Index 42.91 06/03/2016 2:09 PM ENTERPRISE PROJECT MANAGER Plan of Treatment Health Maintenance Due Date [...] (1 - 1-dose 75+ series) [address] [place] [id number] BLUE PREFERRED Care Teams Briefcase Sewer Relationship Specialty Start Date End Date Chip Gordon MD [address] [facility] [address] [place] [address] PCP - General Family Practice 06/03/16
== END 2024-08-22 06:58 | disposition home or self-care (01) ==
PROVIDERS: PCP Family Medicine; Visit Provider Surgery
DX: C50.811 Malignant neoplasm of overlapping sites of right female breast (principal); R92.8 Other abnormal and inconclusive findings on diagnostic imaging of breast
CPT/HCPCS: 19083; 77065; 88305; 88360; A4648

== ENCOUNTER 2024-10-03 09:10 | Outpatient (CLI) | payer OTHER, SELFPAY ==
--- NOTE | ~2024-10-03 | MMUS_ITS ---
MM post biopsy diagnostic RT, US_MAGSEEDRT_US EXAMINATION: MM post biopsy diagnostic RT, US_MAGSEEDRT_US INDICATION: Right breast cancer TECHNIQUE: The procedure for a ultrasound -guided Magseed localization was discussed with the patient . Risks discussed included bleeding and infection. The patient verbalized understanding and agreed to proceed. The time out was performed to verify the patient's name, date of , and site of procedure. The s kin overlying the right breast was prepared in usual fashion. Utilizing ultrasound guidance, the need le was advanced into the right breast. Confirmation of Magseed position was achieved with ultrasound and subsequent mediolateral and craniocaudal mammogram. The patient tolerated procedure without immed iate complication. BREAST PARENCHYMAL COMPOSITION: Not dense: There are scattered areas of fibroglandular density. FINDINGS: Ultrasound and mammographic images demonstrate deployment of the Magseed device of the biop sy-proven right breast cancer. Magseed device was deployed and a small mass 2 cm anterior to the prio r tissue marker. IMPRESSION: 1. Ultrasound right breast Magseed localization. Magseed device was deployed and a small mass 2 cm an terior to the prior tissue marker. Post procedure mammogram for marker placement. Reviewed, dictated and finalized at location B. IMPRESSION: 1. Ultrasound right breast Magseed localization. Magseed device was deployed an d a small mass 2 cm anterior to the prior tissue marker. Post procedure mammogr am for marker placement.
--- OUTSIDE RECORDS SUMMARY | 2024-10-03 09:54 | XMS_ITS | Continuity of Care Document ---
Author Organization [facility] Address [address] [place] [address] [address] [place] [address] Phone Care Team Providers Care Hop Farm Worker Name Role Phone Lexis Lieberman Unavailable Unavailable Advance Directives Directive Yes / No Effective Date File Name No Information Encounters Encounter Description Practice Location Reason(s) For Visit Diagnoses Date Provider Providers Copied on Encounter [facility], [address], [place], [place], [address], [place] tel:[phone] [facility] [place] No Information [phone] 5 Luisana Pires. [address] [facility] [place] , [address], [place], [address], [place]. tel:[phone] Family History Family Member Type Diagnosis Age At Onset No Information Payers Payer name Insurance type Covered republican ID Authoriza tion(s) [facility] Commercial CI [id number] Social History Type Description Quantity Date Captured [...]
--- OUTSIDE RECORDS SUMMARY | 2024-10-03 09:54 | XMS_ITS | Clinical Summary ---
Author Organization [facility] Address [address] [facility] [place] [address] Phone Care Team Providers Care Dye Lab Technician Name Role Phone Chip Gordon MD Primary Care Provider [phone] Allergies Active Allergy Reactions Criticality Noted Date Comments Lisinopril Cough Low 09/06/2024 Metformin Diarrhea,Nausea and Vomiting Low 025 Medications pravastatin (PRAVACHOL) 20 mg tablet TK 1 T PO D 5 7 Active losartan (COZAAR) 50 mg tablet TK 1 T PO QD 1 7 Active Ozempic 1 mg/dose (4 mg/3 mL) Pen Injector Inject 1 mg by subcutaneous injection every 7 days. 5 Active loratadine (CLARITIN ORAL) Take by mouth daily. Active esomeprazole magnesium (NEXIUM 24HR ORAL) Take by mouth daily. Active Active Problems No known active problems Encounters Date Type Department Care Team Description 09/13/2024 External Device Data STL ABSTRACTION Provider, Abstract 09/13/2024 External Device Data STL ABSTRACTION Provider, Abstract 09/12/2024 External Device Data STL ABSTRACTION Provider, Abstract 09/12/2024 External Device Data STL ABSTRACTION Provider, Abstract 09/11/2024 External Device Data STL ABSTRACTION Provider, Abstract 09/06/2024 9:30 AM CDT Office Visit [facility] Oncology and Hematology - [place] [address] [address] Alphonse Amado MD Malignant neoplasm of upper-outer quadrant of right breast in female, estrogen receptor negative (CMS/HCC) (Primary Dx) from Last 3 Months Family History Medical History Relation Name Comments No Known Problems Brother 1 Bladder Cancer Brother 2 Diabetes Brother 2 No Known Problems Child 1 No Known Problems Child 2 No Known Problems Father Heart Disease Mother No Known Problems Sister 1 No Known Problems Sister 2 Relation Name Status Comments Brother 1 Alive Brother 2 Child 1 Alive Child 2 Alive Father Mother Sister 1 Alive Sister 2 Alive Social History Tobacco Use Types Packs/Day Years Used Date Smoking Tobacco: Never Tobacco Cessation:Counseling Given: Not Answered Alcohol Use Standard Drinks/Week Comments No 0 (1 standard drink = 0.6 oz pur e alcohol) Comments No Sex and Gender Information Value Date Recorded Sex Assigned at Not on file 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 Gender Identity Not on file Sexual Orientation Not on file Last Filed Vital Signs Vital Sign Reading Time Taken Comments Blood Pressure 120/61 09/06/2024 9:27 AM CDT Pulse 81 09/06/2024 9:27 AM CDT Temperature 36.4 C (97.6 F) 09/06/2024 9:27 AM CDT Respiratory Rate 15 09/06/2024 9:27 AM CDT Oxygen Saturation 96% 09/06/2024 9:27 AM CDT Inhaled Oxygen Concentration - - Weight 105 kg (231 lb 6.4 oz) 09/06/2024 9:27 AM CDT Height 162.6 cm (5' 4) 09/06/2024 9:27 AM CDT Body Mass Index 39.72 09/06/2024 9:27 AM CDT Plan of Treatment Health Maintenance Due Date Last Done Comments Pre-Diabetes and Diabetes Screening 1955 DTAP/TDAP/TD VACCINES (1 - Tdap) 1973 BREAST [...] (1 - 1-dose 75+ series) 2029 Insurance BCBS BLUE PREFERRED [facility] MCR Care Teams Dye Lab Technician Relationship Specialty Start Date End Date Chip Gordon MD [address] [facility] [address] [place] [address] PCP - General Family Practice 06/03/16
== END 2024-10-03 09:11 | disposition home or self-care (01) ==
PROVIDERS: PCP Family Medicine; Visit Provider Surgery
DX: R92.8 Other abnormal and inconclusive findings on diagnostic imaging of breast (principal); C50.911 Malignant neoplasm of unspecified site of right female breast; Z90.11 Acquired absence of right breast and nipple
CPT/HCPCS: 19285; 77065

== ENCOUNTER 2024-10-11 11:13 | Outpatient (CLI) | payer OTHER, SELFPAY ==
--- NOTE | 2024-10-11 11:30 | ECG_ITS ---
Test Date: 2024-10-11 11:25:39 Measurements Intervals [place] Rate: 91 P: 47 AK: 151 QRS: 59 QRSD: 98 T: 28 QT: 354 QTc: 438 Interpretive Statements SINUS RHYTHM MINIMAL Q WAVES- INFERIOR LEADS BORDERLINE ECG No previous ECG available for comparison Electronically Signed On 10-11-2024 12:14:17 CDT by Bonilla Armando D.O.
[2024-10-11 11:46] LABS: Basophils Percent Auto 0.2 % (0.2-1.2); Eosinophils Absolute Auto 0.3 K/mm3 (0-0.3); Eosinophils Percent Auto 2.9 % (0-4.4); Hematocrit 40.5 % (37.0-47.0); Hemoglobin 12.2 g/dL (12.0-15.0); Immature Granulocyte Absolute 0.03 K/mm3 (0.00-0.031); Immature Granulocyte Percent A 0.3 % (0-0.5); Lymphocytes Absolute Auto 2.47 K/mm3 (0.9-3.2); Lymphocytes Percent Auto 27.7 % (18.3-44.2); Mean Corpuscular HGB Conc 30.1 g/dl (32-36); Mean Corpuscular Hemoglobin 26.5 pg (26-34); Mean Platelet Volume 10.3 fl (7.4-10.4); Monocytes Absolute Auto 0.9 K/mm3 (0.1-0.6); Monocytes Percent Auto 9.6 % (2.6-8.5); Neutrophils Absolute Auto 5.3 K/mm3 (1.3-6.7); Neutrophils Percent Auto 59.3 % (45.5-73.1); Platelet Count Result 294 k/mm3 (150-375); Red Cell Distribution Width 13.8 % (11.5-14.5); White Blood Count 8.9 K/mm3 (4.5-10.0)
[2024-10-11 12:02] LABS: Partial Thromboplastin Time 26.4 Seconds (22.3-36.8); Prothrombin Time 13.2 Seconds (11.1-14.7)
--- OUTSIDE RECORDS SUMMARY | 2024-10-11 12:05 | XMS_ITS | Continuity of Care Document ---
Author Organization [facility] Address [address] [place] [address] [address] [place] [address] Phone Care Team Providers Care Web Production Artist Name Role Phone Lexis Lieberman Unavailable Unavailable Advance Directives Directive Yes / No Effective Date File Name No Information Encounters Encounter Description Practice Location Reason(s) For Visit Diagnoses Date Provider Providers Copied on Encounter [facility], [address], [place], [place], [id number], [place] tel:[phone] [facility] [place] No Information 0 [phone] 5 Luisana Pires. [address] [facility] [place] , [address], [place], [address], [place]. tel:[phone] Family History Family Member Type Diagnosis Age At Onset No Information Payers Payer name Insurance type Covered republican ID Authoriza tion(s) [facility] Commercial CI [id number] Social History Type Description Quantity Date Captured [...]
== END 2024-10-11 11:14 | disposition home or self-care (01) ==
LOC: ANHSURGERY 11:16
PROVIDERS: PCP Family Medicine; Visit Provider Surgery
DX: Z01.818 Encounter for other preprocedural examination (principal); I10 Essential (primary) hypertension; C50.911 Malignant neoplasm of unspecified site of right female breast
CPT/HCPCS: 36415; 85025; 85610; 85730; 93005

== ENCOUNTER 2024-10-17 00:17 | Day surgery (SDC) | payer OTHER, SELFPAY ==
--- NOTE | 2024-10-08 15:15 | PC.NURSE ---
Report to the Outpatient Waiting Room, entrance under the green pavilion located off [facility], at time _7AM on date __10/17/24 . Planned Procedure Time: ___9AM .? NUCLEAR MED AT 8:30 AM Time changes happen often and if your time is changed the preop area will call you the afternoon before. - You and your visitor will be asked to self-screen and do not enter if you have any COVID symptoms. Please call surgeon if you need to reschedule. - A mask is optional within the hospital at this time. Patients may have clear liquids (water, carbonated beverages, clear teas, apple juice) until 3 hours prior to surgery with a maximum of 20 ounces. - No food from midnight until time of surgery and no smoking, or chewing tobacco (or any form of nicotine). No chewing gum, candy or mints. Take only the following medications with a SIP of water on the morning of surgery: NONE DO NOT STOP ANY OF YOUR OTHER PRESCRIPTION MEDICATIONS PRIOR TO SURGERY EXCEPT THE FOLLOWING Hold all vitamins and supplements for 3 days per anesthesiologist.LAST DOSE 10/13/24 Medications to discontinue per physician NONE Please no make-up, nail upper sorbian, hairspray, perfume, deodorant, or body powder the day of surgery.? No jewelry (including any body piercings) or valuables the day of surgery, leave them at home.? Please take a shower or bath the night before, or the morning of, surgery with an antibacterial soap.? Wear comfortable, loose fitting clothing.? Children are encouraged to wear pajamas. - Jewelry must be removed prior to entering the operating room.? Rings and piercings that are not removed may be cut off. - The hospital will not accept responsibility for valuables.? - Please leave all valuables, including medications, at home the day of surgery. If you are going home after surgery, a licensed route sales delivery drivers supervisor must drive you home.? - NO public transportation without another adult if you receive anesthesia. - We recommend that an adult stay with you for 24 hours following discharge. - We also recommend that you do not drive, make important decision, drink alcoholic beverages, or take any drugs that were not prescribed by your health care provider for at least 24 hours after your discharge time. Follow any additional instructions given to you from your surgeon. Telephone instructions given to ___PATIENT and asked if any additional questions and then verbalized understanding. Patient advised to call surgeon office or pre surgery nurse liaison [phone] if any additional questions.
[2024-10-08 15:28] VITALS: BMI 37.8
[2024-10-17] VITALS (9 sets, daily range): BP systolic 137–158; BP diastolic 60–80; PULSE 73–88; RESP 13–20; TEMP 36.4–36.9; O2SAT 95–99
--- NOTE | ~2024-10-17 | MM_ITS ---
EXAMINATION: MM_FAXITRON_MG INDICATION: Postoperative TECHNIQUE: 2 specimen radiographs are submitted for review. COMPARISON: None available FINDINGS: The biopsy marker and magseed are contained within the specimen radiographs. IMPRESSION: 1. Biopsy marker and magseed within the specimen radiographs. Reviewed, dictated and finalized at location .
--- NOTE | ~2024-10-17 | NM_ITS ---
EXAMINATION: NM sentinel node inject only DATE: 10/17/2024 12:17 INDICATION: Right breast cancer TECHNIQUE: 1.07 mCi Tc-99m filtered sulfur colloid was injected in the periareolar region of the righ t breast by Dr. Gonzalez. Radiologist was not present for the procedure. No images were obtained. IMPRESSION: 1. Right breast sentinel lymph node radiopharmaceutical injection. Reviewed, dictated and finalized at location A.
--- NOTE | 2024-10-17 07:07 | P.PNAN_ITS ---
Anes - Initial Pre Proc Eval Procedure: Operation Date: 10/17/24 09:00 Proposed Procedures p Right Breast Lumpectomy with Mag Seed Localization, Right Hazel Lymph Node Biopsy, Injection of Lymphoseek and Methylene Blue, Possible Adjacent Tissue Transfer - Betzy Gonzalez MD Date/Time: 10/17/24 07:07 Surgeon: Betzy Gonzalez MD Pre Op Diagnosis: Malignant Neoplasm of Right Breast Patient Data Age: 69 Gender: F Height: 1.63 m Weight: 99.8 kg Allergies Allergy/AdvReac Type Severity Reaction Status Date / Time simvastatin Allergy Unknown MUSCLE/JOINT Verified 10/11/24 13:31 PAIN lisinopril AdvReac Mild Cough Verified 10/11/24 13:31 metformin AdvReac Mild Diarrhea Verified 10/11/24 13:31 Home Medications ?Medication ?Instructions ?Recorded ?Confirmed ?Type loratadine 10 mg tablet (Claritin) 10 mg PO DAILY PRN SEASONAL 07/02/19 10/08/24 History ALLERGIES acetaminophen 500 mg tablet 1,000 mg PO QID PRN Pain 03/16/23 10/08/24 History tewjplia-tswoqhgo-hqk C 250 2 tablet PO QAM 03/16/23 10/08/24 History mg-herbal no.124 11.66 mg chewable tablet (Airborne Gummy) pravastatin 20 mg tablet See Rx Instructions .Route 05/31/24 10/08/24 Rx .COMPLEX #90 tabs blood-glucose meter (OneTouch #1 ea 08/10/24 09/19/24 Rx Verio Flex Start kit) lancets (Microlet Lancet) #100 ea 08/10/24 09/19/24 Rx losartan 50 mg tablet See Rx Instructions .Route 09/21/24 10/08/24 Rx .COMPLEX #90 tabs omeprazole 20 mg capsule,delayed 20 mg PO PRN PRN heartburn 10/08/24 10/08/24 History release blood sugar diagnostic (OneTouch #100 ea 10/11/24 Rx Verio test strips) tirzepatide 5 mg/0.5 mL 5 mg (0.5 mL) subcut WEEKLY #2 mL 10/16/24 Rx subcutaneous pen injector (Nahum) Patient hx anesthesia problems: none Family hx anesthesia problems: none Results Review: All pre-operative results and documents have been reviewed as part of the pre- operative evaluation. PMFSH Past Medical History Medical History Left knee DJD Left knee pain Diverticulitis Neck pain Obesity HLD (hyperlipidemia) HTN (hypertension) Type 2 diabetes mellitus without complications Surgical History Surgical History S/P total knee arthroplasty Left TKA 03/30/23 Previous back surgery Ruptured disc repair - 1993 Hx of prior ablation treatment 2004 - [place] History of cholecystectomy 2001 Family History Family History Mother Hypertension Sibling Asthma Family history of diabetes mellitus in first degree relative Social History Social History Smoking status: Never smoker Second hand tobacco smoke exposure: No Additional smoking assessment comments: PT DENIES ALL FORMS OF TOBACCO USE Alcohol intake: never Substance use: never Substance use type: does not use Do You Feel Safe in your Home?: Yes Lack of Transportation: No Lack of Food: Never True Current Housing: I Have Housing Concerned About Future Housing: No Difficulty Paying Gas/Electric Bills: No Difficulty Paying for Meds: No Currently Unemployed: No Education: Trade/Vocational Certificate Difficulty w/ Childcare or Family Care: No Living arrangements: with family Occupation/Education: retired Gender identity (if verbalized by the patient): Female Sexual Orientation (if Verbalized by the Patient): Straight or Heterosexual Spiritual care concerns: No Anes - Eval Final PreProcedure Day of Procedure 10/17/24 07:07 Patient weight: obese Heart: regular rate and rhythm Lungs: clear to auscultation Airway: Mallampati scale class II Neurological: alert and oriented Last oral intake: >/= 8 hours ASA classification: III Emergent: no Anesthetic plan: proceed Anesthesia type and monitoring: general LMA and standard monitoring Results Review: All pre-operative results and documents have been reviewed as part of the pre- operative evaluation. Informed Consent: The patient's anesthetic plan and its attendant risks and benefits were discussed with the patient/family/POA. Questions were solicited and answers provided to the satisfaction of the patient/family/POA.
[2024-10-17] MEDS: LACTATED RINGERS 1,000 ML 30 ML IV CONT ×2 (07:30→12:06)
[2024-10-17] MEDS: LIDOCAINE/PRILOCAINE CREAM 2.5-2.5% TUBE 1 EACH TOPICAL (07:30)
[2024-10-17] MEDS: ACETAMINOPHEN 500 MG TABLET 1000 MG PO (07:30)
[2024-10-17 07:35] LABS: Glucose Point of Care 120 mg/dl (65-105)
--- NOTE | 2024-10-17 08:54 | WPDHPUPDATE1 ---
History and Physical Update Update Date/Time: 10/17/24 08:54 - Right breast lumpectomy with Mag seed localization, sentinel lymph node biopsy, possible adjacent tissue transfer. History and Physical has been reviewed, including an updated exam of the patient. There are NO changes in the patient's condition. Risks, benefits, and alternatives have been discussed and questions answered. Patient agrees to proceed with procedure.
[2024-10-17] MEDS: ceFAZolin 2 GM/D5W 50 ML 2 GM/50 ML BAG IVPB (09:24)
[2024-10-17] MEDS: BUPIVACAINE/EPINEPHRINE 0.5% 30 ML VIAL INFILTRATE (09:53)
--- NOTE | 2024-10-17 10:14 | S_PTH ---
PATIENT: Tina Wilkinson LOC: [facility] U#:[id number] AGE/SX: 69/F ROOM: RE10/17/[address]: Betzy Gonzalez MD : 1955 BED: DIS: 10/17/2024 SPEC #: [id number] RECD: 10/17/24 10:28 STATUS: [place] REQ #: [id number] EWA: 10/17/24 10:[address]: Betzy Gonzalez DEPT: [facility] Surgical RECD BY: Susan Siddiqui ENTERED: 10/17/24 10:29 SP TYPE: Surgical OTHR DR: Chip Gordon MD Tissues: A - [place] LN Breast B - [place] LN Breast C - Breast Lumpectomy D - Breast Re-Excision Procedures: Hematoxylin and Eosin Stain Gross and Microscopic Level 5
--- NOTE | 2024-10-17 10:25 | SUR.OPER ---
Specimens x 2 sent with Kristie, received in pathology by Susan
--- NOTE | 2024-10-17 11:57 | W.PM.PROC2 ---
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 Right breast lumpectomy with Mag seed localization 2. Right axillary sentinel lymph node biopsy 3. Injection of Lymphoseek and methylene blue 4. Adjacent tissue transfer (3cm x 1cm) Surgeon Betzy Gonzalez MD Anesthesia General Description of Procedure Patient was identified in the pre-operative area and brought to the OR suite. She underwent tumor localization previously by IR with magseed placement. She was laid supine in the operating table and sequential compression devices were applied. General anesthesia was induced without difficulties. The right chest was prepped and draped in a sterile fashion. and proceed to inject Lymphoseek as well as diluted methylene blue into the subdermal plane of the periareolar region for sentinel lymph node mapping. The Neoprobe was used to find an area of highest radio activity and a small curvilinear incision was made overlying this area. Dissection was carried down through the subcutaneous tissue and the clavipectoral fascia was encountered and opened. I was able to identify a lymph node that was hot and blue with a count of 32,365. This was sentinel lymph node 1, and was completely excised using the LigaSure device and sent to pathology as the fresh specimen. The Neoprobe was again used to identify a 2nd lymph node that had a count greater than 10% of sentinel lymph node 1, and this was also excised with a count of 6576. sentinel lymph node 2 was also sent to pathology as a fresh specimen. The axillary wound was irrigated with saline hemostasis was assured. The clavipectoral fascia was approximated with a running 3-0 Vicryl. The deep dermal layer was then closed with interrupted 3-0 Vicryl followed by 4-0 Monocryl in a subcuticular fashion for the skin. Attention was then turned to the right breast. The sentimag probe was used to identify the area where the magseed was placed and a lateral curvilinear incision was made. Dissection was carried down through the subcutaneous tissue into the breast tissue. The tumor was identified using sentimag probe, and a rim of normal breast tissue was excised along with the tumor as our lumpectomy specimen. Once the specimen was completely excised, it was oriented using surgical paint according to tetryl wringer operator instructions. The specimen was placed in the [facility] and 2 radiographs were obtained and sent to Radiology for radiographic confirmation of Tumor, biopsy marker and magseed within the specimen. Once the radiographic confirmation was received, the wound was irrigated with saline and hemostasis was assured. several intraparenchymal sutures were placed trying to approximately the central lumpectomy cavity to decrease the risk of seroma. Patient has some redundant lateral skin and decision was made to excise some of skin or a small adjacent tissue transfer for an additional layer of coverage overlying the incision. A curvilinear incision was made approximately 1 cm away from the previous incision for a length of 3 cm and the skin was then de-epithelialized using a 10 blade. This dermis was then advanced over the medial skin and secured to the dermis with interrupted 3-0 Vicryl. A [place] seed to approximate the rest of the dermis to the opposite side with additional 3-0 interrupted Vicryl sutures. The skin was then closed with 4-0 Monocryl in a subcuticular fashion. Dermabond was applied followed by dressing and a surgical bra. Patient was awoken from anesthesia and taken to the recovery area in stable condition. All needles, instruments and sponge counts were correct as reported by the operating room staff. Patient tolerated the procedure well with no immediate complications. Estimated Blood Loss 10 Pathology Yes Complications No immediate complications Condition Stable Disposition PACU [facility] Billing Surgery - Charge Forward: Surgery Billing (CPT 85859, CPT 97413, 89243, 07931, 10167)
[2024-10-17 12:13] LABS: Glucose Point of Care 125 mg/dl (65-105)
[2024-10-17] MEDS: fentaNYL CITRATE INJ (*CRX) 100 MCG/2 ML VIAL 25 MCG IV PUSH ×4 (12:45→12:57)
[2024-10-17] MEDS: oxyCODONE HCL (*CRX) 5 MG TAB IR PO (13:45)
== END 2024-10-17 14:33 | disposition home or self-care (01) ==
PROVIDERS: PCP Family Medicine; Visit Provider Surgery
PROC: (CPT 19301; principal; 2024-10-17 09:00)
DX: C50.911 Malignant neoplasm of unspecified site of right female breast (principal); E78.5 Hyperlipidemia, unspecified; I10 Essential (primary) hypertension; E11.9 Type 2 diabetes mellitus without complications; M17.12 Unilateral primary osteoarthritis, left knee; E66.9 Obesity, unspecified; Z68.37 Body mass index [BMI] 37.0-37.9, adult; Z79.85 Long-term (current) use of injectable non-insulin antidiabetic drugs; Z98.890 Other specified postprocedural states; Z98.1 Arthrodesis status; Z90.49 Acquired absence of other specified parts of digestive tract; Z17.421 Hormone receptor negative with human epidermal growth factor receptor 2 negative status; Z87.19 Personal history of other diseases of the digestive system
CPT/HCPCS: 19301; 38525; 14301; 38792; 76098; 82948; 88307; A9270; A9520; C1713; J0690; J2003; J2371; J2405; J2704; J3010; J7120; Q9968

== ENCOUNTER 2024-12-06 11:39 | Outpatient (CLI) | payer OTHER, SELFPAY ==
--- OUTSIDE RECORDS SUMMARY | 2024-12-06 11:53 | XMS_ITS | Clinical Summary ---
Author Organization [facility] Address [address] [facility] [place] [address] Phone Care Team Providers Care Head Insulation Board Saw Operator Name Role Phone Chip Gordon MD Primary Care Provider [phone] Allergies Active Allergy Reactions Criticality Noted Date [...] Encounters Date Type Department Care Team Description 12/06/2024 Orders Only [facility] On[facility] and Hematology - [place] [address] [facility] [address] [address] Alphonse Amado MD Malignant neoplasm of upper-outer quadrant of right breast in female, estrogen receptor negative (CMS/HCC) (Primary Dx) 11/07/2024 External Device Data STL ABSTRACTION Provider, Abstract 11/07/2024 External Device Data STL ABSTRACTION Provider, Abstract 11/06/2024 External Device Data STL ABSTRACTION Provider, Abstract 10/10/2024 External Device Data STL ABSTRACTION Provider, Abstract 10/09/2024 External Device Data STL ABSTRACTION Provider, Abstract 09/13/2024 External Device Data STL ABSTRACTION Provider, Abstract 09/13/2024 External Device Data STL ABSTRACTION Provider, Abstract 09/12/2024 External Device Data STL ABSTRACTION Provider, Abstract 09/12/2024 External Device Data STL ABSTRACTION Provider, Abstract 09/11/2024 External Device Data STL ABSTRACTION Provider, Abstract 09/06/2024 9:30 AM CDT Office Visit [facility] On[facility] and Hematology - [place] [address] [place] [address] Alphonse Amado MD Malignant neoplasm of [...] on file 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 Gender Identity Not on file Sexual Orientation [...] 09/06/2024 9:27 AM CDT Plan of Treatment Upcoming Encounters Date Type Department Care Team (Late st Contact Info) Description 12/13/2024 9:30 AM CDT Office Visit [facility] On[facility] and Hematology - [place] [address] [place] [address] Alphonse Amado MD [address] [facility] [address] [place] [address] Health Maintenance Due Date Last Done Comments [...] (1 of 2) 2004 OSTEOPOROSIS SCREENING 09/25/2019 [place] Prev entative Visit/Annual Wellness Visit 04/25/2024 INFLUENZA VACCINE (#1) 2024 RSV VACCINE (60+ or ) (1 - 1-dose 75+ series) 2029 Insurance [facility] MCR Care Teams Head Insulation Board Saw Operator Relationship Specialty Start Date End Date Chip Gordon MD [address] [facility] [address] [place] [address] PCP - General Family Practice 06/03/16
--- OUTSIDE RECORDS SUMMARY | 2024-12-06 11:53 | XMS_ITS | Encounter Summary ---
Author Organization [facility] [employer] [facility] Address [address] [place] [address] Care Team Providers [employer] Machine Repairer Name Role Phone Chip Gordon MD Primary Care Provider [phone] Encounter Details Date Type Department Care Team ([facility] Contact Info) Description 12/06/2024 Orders Only [facility] Oncology and Hematology [facility] [address] [place] [address] Alhponse Amado MD [facility] [address] [place] [phone] Malignant neoplasm of upper-outer quadrant of right breast in female, estrogen receptor negative (CMS/HCC) (Primary Dx) Social History Tobacco Use Types Packs/Day Years Used Date Smoking Tobacco: Never Alcohol Use Standard Drinks/Week Comments No 0 (1 standard drink = 0.6 oz pur e alcohol) Comments No Sex and Gender Information Value Date Recorded Sex Assigned at Not on file 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 [employer] Gender Identity Not on file Sexual Orientation Not on file documented as of this encounter Plan of Treatment Upcoming Encounters Date Type Department Care Team (Late Contact Info) Description 12/13/2024 9:30 AM CDT Office Visit [facility] Oncology and Hematology [place] [address] [place] [address] Alphonse Amado MD [address] [place] [phone] Scheduled Orders Name Type Priority Associated Diagnoses Orde r Schedule CANCER ANTIGEN 15-3 Lab Routine Malignant neoplasm of upper-outer quadrant of right breast in female, estrogen receptor negative (CMS/HCC) Expected: 12/06/2024, Expires: 12/06/2025 COMPREHENSIVE METABOLIC PANEL Lab Routine Malignant neoplasm of upper-outer quadrant of right breast in female, estrogen receptor negative (CMS/HCC) Expected: 12/06/2024, Expires: 12/06/2025 CBC WITH DIFFERENTIAL Lab Routine Malignant neoplasm of upper-outer quadrant of right breast in female, estrogen receptor negative (CMS/HCC) Expected: 12/06/2024, Expires: 12/06/2025 documented as of this encounter Visit Diagnoses Diagnosis Malignant neoplasm of upper-outer quadrant of right breast in female, estrogen receptor negative (CMS/HCC)- Primary documented in this encounter Care Teams For[employer] Machine Repairer Relationship Specialty Start Date End Date Chip Gordon MD [address] [facility] [address] [facility] [address] [place] [address] PCP - General Family Practice 06/03/16 documented as of this encounter
[2024-12-06 11:56] LABS: Hematocrit 38.9 % (37.0-47.0); Hemoglobin 12.2 g/dL (12.0-15.0); Immature Granulocyte Percent A 0.4 % (0-0.5); Lymphocytes Absolute Auto 2.47 K/mm3 (0.9-3.2); Mean Corpuscular HGB Conc 31.4 g/dl (32-36); Mean Corpuscular Hemoglobin 27.0 pg (26-34); Mean Corpuscular Volume 86.1 fl (80-100); Nucleated Red Blood Cells Absolute Auto 0.000 K/mm3 (0.0-0.012); Nucleated Red Blood Cells Perc 0.0 % (0.0-0.2); Platelet Count Result 330 k/mm3 (150-375); Red Blood Count 4.52 M/mm3 (4.2-5.4); White Blood Count 9.9 K/mm3 (4.5-10.0)
[2024-12-06 12:40] LABS: Alanine Aminotransferase 13 U/L (6-35); Albumin Level 4.2 g/dL (3.5-5.1); Alkaline Phosphatase 152 U/L (38-126); Anion Gap 5 mmol/L (4-12); Aspartate Amino Transferase 27 U/L (14-36); Bilirubin,Total 0.3 mg/dL (0.2-1.3); Blood Urea Nitrogen 7 mg/dL (7-17); Calcium 8.8 mg/dL (8.4-10.2); Carbon Dioxide 30 mmol/L (22-30); Chloride 102 mmol/L (98-107); Estimated Glomerular Filt Rate > 60; Glucose 100 mg/dL (65-110); Potassium 4.0 mmol/L (3.4-5.0); Sodium 137 mmol/L (137-145); Total Protein 7.7 g/dL (6.3-8.2)
== END 2024-12-06 11:40 | disposition home or self-care (01) ==
LOC: ANHLAB 11:40
PROVIDERS: PCP Family Medicine; Visit Provider Internal Medicine Hematology & Oncology
DX: C50.411 Malignant neoplasm of upper-outer quadrant of right female breast (principal); Z17.1 Estrogen receptor negative status [ER-]
CPT/HCPCS: 36415; 80053; 85025; 86300